=== PATIENT | female | born 1970 | race Hispanic/Latino ===

== ENCOUNTER 2019-08-24 02:37 | Emergency (ER) | payer BC ==
[2019-08-24] MEDS ORDERED: AMOXICILLIN/K CLAV 875/125MG TAB PO ONE (04:00)
[2019-08-24] MEDS ORDERED: KETOROLAC 30 MG/1 ML INJ IM ONE (04:00)
[2019-08-24] MEDS ORDERED: oxyCODONE /ACETAMINOPHEN 5-325MG TAB PO ONE (04:00)
[2019-08-24] MEDS ORDERED: dexAMETHasone 20 MG/5 ML VIAL IM ONE (04:01)
[2019-08-24] MEDS ORDERED: ONDANSETRON 4 MG ODT TAB PO ONE (04:01)
--- NOTE | 2019-08-24 05:16 | Emergency Department Report ---
ED General Adult HPI - General Chief complaint: Dental/Oral Stated complaint: ABSCESSED TOOTH Source: patient Mode of arrival: Ambulatory Limitations: No Limitations - History of Present Illness Initial comments: Patient is a 49-year-old white female is seen of chronic dental abscesses who presents to the ED with complaint of acute onset persistent painful swollen right maxillary gums with premolar and molar toothache and right facial swelling for the last 2 days. Patient denies dizziness, fever, chills, nausea, vomiting, chest pain, shortness of breath, sore throat, nasal and sinus congestion or change in vision. Patient states that she has been taking [id number] medications with no relief. MD Complaint: Dental pain, facial swelling, Gum pain and swelling -: Sudden, days(s) (2) Location: face, mouth Radiation: non-radiation Severity scale (0 -10): 7 Quality: aching, sharp Consistency: constant Improves with: none Worsens with: eating Associated Symptoms: denies other symptoms. denies: confusion, chest pain, cough, diaphoresis, fever/chills, headaches, loss of appetite, malaise, nausea/vomiting, shortness of breath Treatments Prior to Arrival: none - Related Data Previous Rx's Medication Instructions Recorded Last Taken Type Clindamycin [Clindamycin CAP] 300 mg PO Q8HR #60 capsule 08/24/19 Unknown Rx Ketorolac [Toradol] 10 mg PO Q8H PRN #20 tablet 08/24/19 Unknown Rx traMADol [Ultram] 50 mg PO Q6HR PRN #12 tablet 08/24/19 Unknown Rx Allergies Allergy/AdvReac Type Severity Reaction Status Date / Time codeine Allergy Itching Verified 08/24/19 04:27 ED Review of Systems ROS: Stated complaint: ABSCESSED TOOTH Other details as noted in HPI Constitutional: denies: chills, fever Eyes: denies: eye pain, eye discharge, vision change ENT: dental pain, other (Right facial swelling). denies: ear pain, throat pain Respiratory: denies: cough, shortness of breath, wheezing Cardiovascular: denies: chest pain, palpitations Endocrine: no symptoms reported Gastrointestinal: denies: abdominal pain, nausea, diarrhea Genitourinary: denies: urgency, dysuria, discharge Musculoskeletal: denies: back pain, joint swelling, arthralgia Skin: denies: rash, lesions Neurological: denies: headache, weakness, paresthesias Psychiatric: denies: anxiety, depression Hematological/Lymphatic: denies: easy bleeding, easy bruising ED Past Medical Hx - Past Medical History Previous Medical History?: No - Surgical History Past Surgical History?: No - Social History Smoking Status: Current Every Day Smoker Substance Use Type: Alcohol - Medications Home Medications: Home Medications Medication Instructions Recorded Confirmed Last Taken Type Clindamycin [Clindamycin CAP] 300 mg PO Q8HR #60 capsule 08/24/19 Unknown Rx Ketorolac [Toradol] 10 mg PO Q8H PRN #20 tablet 08/24/19 Unknown Rx traMADol [Ultram] 50 mg PO Q6HR PRN #12 tablet 08/24/19 Unknown Rx ED Physical Exam - General Limitations: No Limitations General appearance: alert, in no apparent distress - Head Head exam: Present: atraumatic, normocephalic, normal inspection - Eye Eye exam: Present: normal appearance, PERRL, EOMI Pupils: Present: normal accommodation - ENT ENT exam: Present: mucous membranes moist, TM's normal bilaterally, normal external ear exam, other (swollen, severely tender right maxillary gum; severely tender premolar and molar teeth) - Neck Neck exam: Present: normal inspection, full ROM. Absent: tenderness, lymphadenopathy - Respiratory Respiratory exam: Present: normal lung sounds bilaterally. Absent: respiratory distress, wheezes, rales, rhonchi, chest wall tenderness, accessory muscle use, decreased breath sounds - Cardiovascular Cardiovascular Exam: Present: regular rate, normal rhythm, normal heart sounds. Absent: systolic murmur, diastolic murmur, rubs, gallop - GI/Abdominal GI/Abdominal exam: Present: soft, normal bowel sounds. Absent: tenderness, guarding - Extremities Exam Extremities exam: Present: normal inspection, full ROM, normal capillary refill - Back Exam Back exam: Present: normal inspection, full ROM. Absent: muscle spasm, paraspinal tenderness, vertebral tenderness - Neurological Exam Neurological exam: Present: alert, oriented X3, CN II-XII intact, normal gait, reflexes normal - Psychiatric Psychiatric exam: Present: normal affect, normal mood - Skin Skin exam: Present: warm, dry, intact, normal color. Absent: rash ED Course Vital Signs 08/24/19 08/24/19 08/24/19 02:43 04:58 05:01 Temperature 98.9 F Pulse Rate 87 Respiratory 18 16 16 Rate Blood Pressure 129/86 O2 Sat by Pulse 99 Oximetry ED Medical Decision Making - Medical Decision Making This is a 49-year-old white female with chronic dental abscesses and gingivitis presented to the ED with acute exacerbation of swollen gums and toothache in the right maxillary. In the ED, patient is alert and oriented 3 and is in no acute distress but appears to be in pain. Patient was treated for pain in the ED and also given initial oral antibiotics in the ED. On reevaluation, patient's pain is well controlled with medications and patient discharged home on pain medications and oral antibiotics and advised to follow-up with her dentist in the next 5-7 days for reevaluation or return to the ED immediately if symptoms get worse. - Differential Diagnosis dental abscess; dental caries; gingivitis Critical care attestation.: If time is entered above; I have spent that time in minutes in the direct care of this critically ill patient, excluding procedure time. ED Disposition Clinical Impression: Dental abscess, Acute gingivitis, Dental caries Disposition: TO HOME OR SELFCARE Is pt being admited?: No Does the pt Need Aspirin: No Condition: Stable Instructions: Dental Abscess (ED), Dental Caries (ED), Gingivitis (ED) Additional Instructions: Take medications with food, drink plenty of fluids and follow-up with your dentist or primary care physician in 5-7 days for reevaluation. Return to the ED immediately if symptoms get worse. Prescriptions: Clindamycin [Clindamycin CAP] 300 mg PO Q8HR #60 capsule Ketorolac [Toradol] 10 mg PO Q8H PRN #20 tablet PRN Reason: Pain traMADol [Ultram] 50 mg PO Q6HR PRN #12 tablet PRN Reason: Pain Referrals: PRIMARY CARE, [Primary Care Provider] - 3-5 Days Time of Disposition: 05:14 Print Language: ARMENIAN
[2019-08-24 07:00] VITALS: BP 134/88
== END 2019-08-24 06:00 | disposition home or self-care (01) ==
LOC: ED 02:37
DX: K04.7 Periapical abscess without sinus (principal); K02.9 Dental caries, unspecified; K05.00 Acute gingivitis, plaque induced; F17.200 Nicotine dependence, unspecified, uncomplicated; Z79.899 Other long term (current) drug therapy; Z88.5 Allergy status to narcotic agent
CPT/HCPCS: 96372; 99282; J1100; J1885; Q0162